=== PATIENT | female | born 1940 | race Caucasian/White ===

== ENCOUNTER 2017-09-26 10:20 | Emergency (ER) | payer MEDICARE ==
[~2017-09-26] VITALS: Ht 165.1 cm; Wt 67.4 kg
[~2017-09-26 10:20] MED LIST: ASPI-1265 PO; BIMA2.5D EACHEYE; BRIM15DR8 OP; CLON-527 PO; ESCI5TAB12 PO; FLUO-81 PO; LOSA50TA3 PO; METF500T PO; OXYB5TAB11 PO; OXYC-150 PO; THY60T PO
[2017-09-26 11:32] LABS: BASOPHILS # (AUTO) 0.1 X10'3 (0-0.2); BASOPHILS % (AUTO) 0.7 % (0-1); EOSINOPHILS # (AUTO) 0.4 X10'3 (0-0.9); EOSINOPHILS % (AUTO) 3.3 % (0-6); HEMATOCRIT 41.3 % (35.0-45.0); HEMOGLOBIN 13.9 g/dl (12.0-16.0); LYMPHOCYTES # (AUTO) 1.4 X10'3 (1.1-4.8); MEAN CORPUSCULAR HEMOGLOBIN 31.2 PG (27.0-31.0); MEAN CORPUSCULAR HGB CONC 33.8 % (33.0-36.5); MEAN CORPUSCULAR VOLUME 92.3 FL (78-98); MEAN PLATELET VOLUME 7.4 FL (7.4-10.4); MONOCYTES # (AUTO) 0.7 X10'3 (0-0.9); MONOCYTES % (AUTO) 6.3 % (2-12); NEUTROPHILS # (AUTO) 8.8 X10'3 (1.8-7.7); NEUTROPHILS % (AUTO) 77.7 % (42-75); PLATELET COUNT 311 X10'3 (140-440); RED BLOOD COUNT 4.48 X10'6 (4.20-5.60); RED CELL DISTRIBUTION WIDTH 14.6 % (11.5-14.5); WHITE BLOOD COUNT 11.3 X10'3 (4.5-11.0)
[2017-09-26 11:43] LABS: PARTIAL THROMBOPLASTIN TIME 25 SECONDS (22-32)
[2017-09-26 11:47] LABS: ALANINE AMINOTRANSFERASE 23 U/L (12-78); ALBUMIN/GLOBULIN RATIO 0.8 (1.1-1.5); ALKALINE PHOSPHATASE 52 IU/L (46-116); ANION GAP 5 (8-16); ASPARTATE AMINO TRANSFERASE 16 U/L (10-37); BILIRUBIN,TOTAL 0.4 MG/DL (0.1-1.0); BLOOD UREA NITROGEN 15 MG/DL (7-18); CALCIUM 8.4 MG/DL (8.5-10.1); CHLORIDE 99 MMOL/L (99-107); CREATININE 0.75 MG/DL (0.40-0.90); GLUCOSE 198 MG/DL (70-104); POTASSIUM 4.4 MMOL/L (3.5-5.1); SODIUM 133 MMOL/L (135-145); TOTAL CARBON DIOXIDE 28.8 MMOL/L (24-32); TOTAL PROTEIN 6.8 G/DL (6.4-8.2); eGFR 75 ML/MIN
[2017-09-26] MEDS ORDERED: pseudoephedrine 30mg tablet PO ONE (12:20)
[2017-09-26] MEDS ORDERED: benzonatate 100mg capsule PO ONE (12:20)
[2017-09-26] MEDS ORDERED: BENZ-16 PO (12:21)
[2017-09-26 12:27] VITALS: BP 120/55
== END 2017-09-27 08:08 | disposition home or self-care (01) ==
LOC: ER 10:20
DX: J06.9 Acute upper respiratory infection, unspecified (principal); G89.29 Other chronic pain; I25.10 Atherosclerotic heart disease of native coronary artery without angina pectoris; E11.9 Type 2 diabetes mellitus without complications; Z95.1 Presence of aortocoronary bypass graft; Z98.890 Other specified postprocedural states; Z79.82 Long term (current) use of aspirin; Z79.84 Long term (current) use of oral hypoglycemic drugs; Z79.899 Other long term (current) drug therapy; Z88.0 Allergy status to penicillin; Z88.8 Allergy status to other drugs, medicaments and biological substances
CPT/HCPCS: 36415; 71045; 80053; 84484; 85025; 85610; 85730; 93005; 99285

== ENCOUNTER 2021-10-23 14:49 | Outpatient (CLI) | payer MEDICARE ==
[~2021-10-23 14:49] MED LIST changes: +ALBU90AE PO; -ASPI-1265 PO; +ATRNS IH; -BIMA2.5D EACHEYE; -BRIM15DR8 OP; +BRIN8DRO EACHEYE; +BUDE10.2 PO; +DICY10CA88 PO; -ESCI5TAB12 PO; +ESTR1TAB28 PO; +LANTUS SQ; +LEVO75TA7 PO; -LOSA50TA3 PO; -METF500T PO; +METH2.5T55 PO; +MIRA50TA PO; +MODA200T48 PO; -OXYB5TAB11 PO; -OXYC-150 PO; +PRED20TA PO; +REPA2TAB12 PO; -THY60T PO
== END 2021-10-23 23:59 | disposition home or self-care (01) ==
LOC: RAD 14:49
PROVIDERS: ATTEND Internal Medicine
DX: R13.14 Dysphagia, pharyngoesophageal phase (principal); K21.9 Gastro-esophageal reflux disease without esophagitis; Z79.899 Other long term (current) drug therapy
CPT/HCPCS: 74230

== ENCOUNTER 2022-05-11 20:41 | Inpatient (IN) | payer MEDICARE ==
[~2022-05-11] VITALS: Ht 165.1 cm; Wt 65.5 kg
[~2022-05-11 20:41] MED LIST changes: -ATRNS IH; +BIMA2.5D EACHEYE; -BRIN8DRO EACHEYE; +BRIN8DRO LEFTEYE; +BUSP15TA3 PO; +CHOL500050 PO; -CLON-527 PO; +CYAN-51 PO; +DEXT30DR6 EACHEYE; +FAMO40TA7 PO; -FLUO-81 PO; +FOLI1TAB27 PO; +INSU100I25 SQ; +INSU100I8; -LANTUS SQ; -LEVO75TA7 PO; -METH2.5T55 PO; +MODA100T31 PO; -MODA200T48 PO; +PRED1TAB PO; -PRED20TA PO; -REPA2TAB12 PO
[2022-05-11 21:42] LABS: BASOPHILS # (AUTO) 0.1 X10'3 (0-0.2); BASOPHILS % (AUTO) 1.1 % (0-1); EOSINOPHILS # (AUTO) 0.1 X10'3 (0-0.9); EOSINOPHILS % (AUTO) 0.6 % (0-6); HEMATOCRIT 37.5 % (35.0-45.0); HEMOGLOBIN 12.3 g/dl (12.0-16.0); LYMPHOCYTES # (AUTO) 1.9 X10'3 (1.1-4.8); LYMPHOCYTES % (AUTO) 21.6 % (21-51); MEAN CORPUSCULAR HEMOGLOBIN 28.7 PG (27.0-31.0); MEAN CORPUSCULAR HGB CONC 32.7 g/dL (33.0-36.5); MEAN CORPUSCULAR VOLUME 87.7 FL (78-98); MEAN PLATELET VOLUME 7.8 FL (7.4-10.4); MONOCYTES # (AUTO) 0.6 X10'3 (0-0.9); MONOCYTES % (AUTO) 7.3 % (2-12); NEUTROPHILS # (AUTO) 6.1 X10'3 (1.8-7.7); NEUTROPHILS % (AUTO) 69.4 % (42-75); PLATELET COUNT 459 X10'3 (140-440); RED BLOOD COUNT 4.28 X10'6 (4.20-5.60); RED CELL DISTRIBUTION WIDTH 15.2 % (11.5-14.5); WHITE BLOOD COUNT 8.7 X10'3 (4.5-11.0)
[2022-05-11 21:53] LABS: ALANINE AMINOTRANSFERASE 59 U/L (12-78); ALBUMIN/GLOBULIN RATIO 0.8 (1.1-1.5); ALKALINE PHOSPHATASE 201 IU/L (46-116); ANION GAP 12 (8-16); ASPARTATE AMINO TRANSFERASE 40 U/L (10-37); BILIRUBIN,TOTAL 0.5 MG/DL (0.1-1.0); BLOOD UREA NITROGEN 36 MG/DL (7-18); BUN/CREATININE RATIO 35.6 (6.6-38.0); CALCIUM 8.6 MG/DL (8.5-10.1); CHLORIDE 102 MMOL/L (99-107); CREATININE 1.01 MG/DL (0.40-0.90); GLUCOSE 89 MG/DL (70-104); POTASSIUM 4.4 MMOL/L (3.5-5.1); SODIUM 137 MMOL/L (135-145); TOTAL CARBON DIOXIDE 22.8 MMOL/L (24-32); TOTAL PROTEIN 6.8 G/DL (6.4-8.2); eGFR 52 ML/MIN
[2022-05-11 22:00] LABS: MAGNESIUM 1.9 MG/DL (1.5-2.4)
--- NOTE | 2022-05-11 22:04 | NUR ---
TROP 640
[2022-05-11] MEDS ORDERED: aspirin 325mg tablet PO ONE (22:20)
[2022-05-11] MEDS ORDERED: furosemide 10 MG/1 ML 10ml inj IV ONE (22:20)
[2022-05-11] MEDS ORDERED: enoxaparin 100mg/ml syringe SUBCUT ONE (22:40)
[2022-05-11] MEDS ORDERED: normal saline 1000ML IV soln IVB ONE (22:50)
[2022-05-12] MEDS ORDERED: normal saline 1000ML IV soln IVB ONE (00:35)
[2022-05-12] MEDS ORDERED: mag hydrox/Alum hydrox/simeth 30ml oral suspension PO PRN (03:00)
[2022-05-12] MEDS ORDERED: morphine 2 MG/ML inj. syringe IV PRN (03:00)
[2022-05-12] MEDS ORDERED: magnesium hydroxide 30ml (MOM) UD suspension PO PRN (03:00)
[2022-05-12] MEDS ORDERED: acetaminophen 325mg tablet PO PRN ×2 (03:00)
[2022-05-12 05:00] VITALS: BP 100/52
[2022-05-12 06:00] VITALS: BP 108/53
--- NOTE | 2022-05-12 06:47 | NUR ---
Patient in room PCU 3025. I have received report from YURI Raphael and had the opportunity to ask questions and assume patient care.
--- NOTE | 2022-05-12 06:59 | NUR ---
Problems reprioritized. Patient report given, questions answered & plan of care reviewed with Tatyana. Addendum: 05/12/22 at 0659 by Daljit Hutton RN Amended: Links added.
[2022-05-12] MEDS ORDERED: dicyclomine 10 MG capsule PO PRN (07:20)
[2022-05-12] MEDS ORDERED: MESSAGE TO PHARMACY PO ONE (07:25)
[2022-05-12] MEDS ORDERED: DEXTROSE 15 GM of carb/4 tabs (each vial/BOTTLE has 4 tablets) PO PRN ×2 (07:25)
[2022-05-12] MEDS ORDERED: glucagon, human recombinant 1mg kit SUBCUT PRN (07:25)
[2022-05-12] MEDS ORDERED: dextrose 50%-water 50ml dispensing syringe IV PRN ×2 (07:25)
[2022-05-12] MEDS ORDERED: albuterol 2.5 MG/3 ML nebule NEB PRN (07:45)
[2022-05-12] MEDS ORDERED: PEG 400/HYPROMELLOSE/GLYCERIN 15ml bottle EACHEYE PRN (07:45)
[2022-05-12] MEDS: estradiol 1mg tablet PO SCH (08:00)
[2022-05-12] MEDS ORDERED: epiNEPHrine 0.1mg/ml 10ml syringe ONE (08:00)
[2022-05-12] MEDS ORDERED: famotidine 20mg tablet PO ONE (08:00)
[2022-05-12] MEDS: modafinil 100mg tablet PO SCH (08:00)
[2022-05-12] MEDS: cholecalciferol (vitamin D3) 1,000 unit (25mcg) tablet PO SCH (08:00)
[2022-05-12] MEDS: aspirin 81mg, enteric-coated 1 TAB TABLET.DR PO SCH (08:00)
[2022-05-12] MEDS ORDERED: amiodarone 50MG/ML inj IV ONE (08:00)
[2022-05-12] MEDS: busPIRone 15mg tablet PO SCH ×2 (08:00→19:55)
[2022-05-12] MEDS ORDERED: atorvastatin 20mg tablet PO SCH (08:00)
[2022-05-12] MEDS: docusate sod 100mg capsule PO SCH ×2 (08:00→19:55)
[2022-05-12] MEDS ORDERED: MIRABEGRON 50 MG PO SCH (08:00)
[2022-05-12] MEDS: folic acid 1mg tablet PO SCH (08:00)
[2022-05-12] MEDS ORDERED: non-formulary drug (Budesonide/Formoterol Fumarate (Symbicort 160-4.5 Mcg Inhaler) 2 PUFF) PO SCH (08:00)
[2022-05-12] MEDS: SIMBRINZA LEFTEYE SCH ×2 (08:00→19:52)
[2022-05-12] MEDS: predniSONE 1 mg tablet PO SCH (08:00)
[2022-05-12] MEDS: albuterol 2.5 MG/3 ML nebule NEB SCH ×3 (08:33→22:08)
[2022-05-12] MEDS: budesonide 0.5mg/2ml UD nebule IH SCH ×2 (08:33→22:08)
[2022-05-12] MEDS: furosemide 20 MG/2 ML vial IV SCH ×2 (08:55→19:55)
[2022-05-12] MEDS: ondansetron/PF 4mg/2ml inj IV PRN (08:57)
--- NOTE | 2022-05-12 09:20 | NUR ---
Pt refusing am meds and breakfast d/t nausea and difficulty swallowing. throat slightly red from excessive cough. Reports increased SOB and pain to right upper back with deep breath. Held meds, gave Maryam and paged with pt update.
[2022-05-12 11:00] VITALS: BP 97/61
[2022-05-12 15:00] VITALS: BP 96/55
--- NOTE | 2022-05-12 18:06 | NUR ---
Problems reprioritized. Patient report given, questions answered & plan of care reviewed with YURI Raphael.
[2022-05-12 19:00] VITALS: BP 111/64
[2022-05-12] MEDS: morphine 2 MG/ML inj. syringe IV PRN (19:19)
[2022-05-12] MEDS: insulin glargine (Lantus) pen - multi-dose SQ SCH (21:00)
[2022-05-12] MEDS ORDERED: HALLS - SOOTHE MENTHOL 1.8 MG cough drop LOZENGE MM PRN (21:30)
[2022-05-12 22:00] VITALS: BP 108/74
[2022-05-12] MEDS ORDERED: LORazepam 1 MG tablet PO ONE (22:15)
[2022-05-13 02:00] VITALS: BP 115/74
[2022-05-13] MEDS: albuterol 2.5 MG/3 ML nebule NEB SCH ×4 (03:00→21:07)
[2022-05-13 06:00] VITALS: BP 153/75
--- NOTE | 2022-05-13 06:02 | NUR ---
0540) WARMED HOT PACK FOR PATIENTS BACK PAIN AND APPLIED IT.
--- NOTE | 2022-05-13 06:53 | NUR ---
Problems reprioritized. Patient report given, questions answered & plan of care reviewed with JEANNE. Addendum: 05/13/22 at 0653 by Daljit Hutton RN Amended: Links added.
[2022-05-13] MEDS: levoTHYROXINE 25mcg tablet PO SCH (07:00)
--- NOTE | 2022-05-13 07:21 | NUR ---
Patient in room U 3026T. I have received report from Donavon and had the opportunity to ask questions and assume patient care.
[2022-05-13] MEDS: morphine 2 MG/ML inj. syringe IV PRN ×3 (07:24→17:06)
[2022-05-13 07:31] LABS: BASOPHILS # (AUTO) 0.1 X10'3 (0-0.2); BASOPHILS % (AUTO) 1.1 % (0-1); EOSINOPHILS # (AUTO) 0.1 X10'3 (0-0.9); EOSINOPHILS % (AUTO) 0.9 % (0-6); HEMATOCRIT 35.6 % (35.0-45.0); HEMOGLOBIN 11.8 g/dl (12.0-16.0); LYMPHOCYTES # (AUTO) 1.3 X10'3 (1.1-4.8); LYMPHOCYTES % (AUTO) 14.9 % (21-51); MEAN CORPUSCULAR HEMOGLOBIN 29.2 PG (27.0-31.0); MEAN CORPUSCULAR HGB CONC 33.1 g/dL (33.0-36.5); MEAN CORPUSCULAR VOLUME 88.4 FL (78-98); MEAN PLATELET VOLUME 7.8 FL (7.4-10.4); MONOCYTES # (AUTO) 0.7 X10'3 (0-0.9); MONOCYTES % (AUTO) 7.8 % (2-12); NEUTROPHILS # (AUTO) 6.5 X10'3 (1.8-7.7); NEUTROPHILS % (AUTO) 75.3 % (42-75); PLATELET COUNT 380 X10'3 (140-440); RED BLOOD COUNT 4.03 X10'6 (4.20-5.60); RED CELL DISTRIBUTION WIDTH 15.6 % (11.5-14.5); WHITE BLOOD COUNT 8.7 X10'3 (4.5-11.0)
[2022-05-13 07:50] LABS: ALBUMIN 2.8 G/DL (3.4-5.0); ANION GAP 19 (8-16); BLOOD UREA NITROGEN 38 MG/DL (7-18); BUN/CREATININE RATIO 38.8 (6.6-38.0); CALCIUM 8.3 MG/DL (8.5-10.1); CHLORIDE 102 MMOL/L (99-107); CREATININE 0.98 MG/DL (0.40-0.90); GLUCOSE 157 MG/DL (70-104); POTASSIUM 4.5 MMOL/L (3.5-5.1); SODIUM 141 MMOL/L (135-145); TOTAL CARBON DIOXIDE 20.4 MMOL/L (24-32); eGFR 54 ML/MIN
[2022-05-13] MEDS: cyanocobalamin 500mcg tablet PO SCH (08:00)
[2022-05-13] MEDS: cholecalciferol (vitamin D3) 1,000 unit (25mcg) tablet PO SCH (08:00)
[2022-05-13] MEDS: modafinil 100mg tablet PO SCH (08:00)
[2022-05-13] MEDS: atorvastatin 20mg tablet PO SCH (08:00)
[2022-05-13] MEDS: SIMBRINZA LEFTEYE SCH ×2 (08:00→20:00)
[2022-05-13] MEDS: latanoprost 0.005% 2.5ml ophthalmic drops EACHEYE SCH (08:00)
[2022-05-13] MEDS: mirabegron 25mg ER tablet PO SCH (08:00)
[2022-05-13] MEDS: aspirin 81mg, enteric-coated 1 TAB TABLET.DR PO SCH (08:00)
[2022-05-13] MEDS: busPIRone 15mg tablet PO SCH ×2 (08:00→20:00)
[2022-05-13] MEDS: predniSONE 1 mg tablet PO SCH (08:00)
[2022-05-13] MEDS: docusate sod 100mg capsule PO SCH ×2 (08:00→20:00)
[2022-05-13] MEDS: folic acid 1mg tablet PO SCH (08:00)
[2022-05-13] MEDS: estradiol 1mg tablet PO SCH (08:00)
[2022-05-13] MEDS: budesonide 0.5mg/2ml UD nebule IH SCH ×2 (08:02→21:07)
--- NOTE | 2022-05-13 09:00 | NUR ---
Per MD Escobar ron to miss dose all PO am meds d/t change in condition. Will continue to monitor.
[2022-05-13] MEDS: furosemide 20 MG/2 ML vial IV SCH ×2 (09:07→19:50)
[2022-05-13 09:20] LABS: ABG BASE EXCESS -4.3 mmol/L (-2.0-2.0); ABG HCO3 20.3 mmol/L (22.0-26.0); ABG OXYGEN SATURATION 90.9 % (94-97); ABG PCO2 (T) 35.3 mmHg (32.0-45.0); ABG PO2 (T) 65.8 mmHg (75.0-100.0); ALLEN'S TEST POSITIVE; FCOHb 0.2 % (0.0-3.9); FLOW 2 L/min; FMetHb 0.1 % (0.0-1.5); FO2Hb 90.6 % (94-97); PATIENT TEMPERATURE 36.6; TOTAL HEMOGLOBIN 12.9 G/dl (12.0-16.0)
--- NOTE | 2022-05-13 10:12 | NUR ---
PAGER ID: [phone] MESSAGE: [id number]. Pasc[place]. Pt refuses bipap. c/o not being able to swallow. on 3L NC, no s/s of distress at this time. Jes [phone]
[2022-05-13 11:00] VITALS: BP_SYST 108; BP_SYST 126; BP_SYST 134; BP_SYST 145; BP_DIAS 37; BP_DIAS 47; BP_DIAS 82
--- NOTE | 2022-05-13 11:00 | NUR ---
Attempted CPAP again - pt tolerated well. Will keep on for as long as tolerated. Monitoring
[2022-05-13 15:00] VITALS: BP 146/69
[2022-05-13 18:00] VITALS: BP 94/69
--- NOTE | 2022-05-13 18:05 | NUR ---
Pt c/o dizzyness. VSS. repositioned and put back the CPAP. She feels better, monitoring
--- NOTE | 2022-05-13 19:04 | NUR ---
Patient in room U 3025P. I have received report from Jes WELCH and had the opportunity to ask questions and assume patient care.
--- NOTE | 2022-05-13 19:04 | NUR ---
Problems reprioritized. Patient report given, questions answered & plan of care reviewed with YURI Abraham.
--- NOTE | 2022-05-13 19:07 | NUR ---
1700 BG was just now done. Pt is not eating. Orthostatic VS was not able to be got today as pt was feeling bad. Cpap was placed on patient about midday and she has been tolerating well since. She is too weak to get out of bed at this time and has been repositioned q2h and PRN. Morphine has been administered for pain with some relief.
--- NOTE | 2022-05-13 19:14 | NUR ---
Orientee documentation: I have reviewed and agree with all interventions, assessments performed and documented by YURI Osuna.
[2022-05-13] MEDS: insulin Lispro (HumaLOG) vial - multi-dose SQ SCH (19:48)
[2022-05-13] MEDS: insulin glargine (Lantus) pen - multi-dose SQ SCH (21:00)
[2022-05-13 22:00] VITALS: BP 117/63
[2022-05-14] VITALS (7 sets, daily range): BP systolic 97–128; BP diastolic 55–73
[2022-05-14] MEDS: morphine 2 MG/ML inj. syringe IV PRN ×3 (01:24→16:41)
[2022-05-14] MEDS: albuterol 2.5 MG/3 ML nebule NEB SCH ×2 (02:47→08:13)
[2022-05-14] MEDS: ondansetron/PF 4mg/2ml inj IV PRN (04:20)
--- NOTE | 2022-05-14 06:30 | NUR ---
Patient in room PCU 3025. I have received report from YURI Loja and had the opportunity to ask questions and assume patient care.
[2022-05-14 06:37] LABS: BASOPHILS # (AUTO) 0.1 X10'3 (0-0.2); BASOPHILS % (AUTO) 0.6 % (0-1); EOSINOPHILS # (AUTO) 0.1 X10'3 (0-0.9); EOSINOPHILS % (AUTO) 0.5 % (0-6); HEMATOCRIT 37.3 % (35.0-45.0); HEMOGLOBIN 12.3 g/dl (12.0-16.0); LYMPHOCYTES # (AUTO) 0.9 X10'3 (1.1-4.8); LYMPHOCYTES % (AUTO) 8.3 % (21-51); MEAN CORPUSCULAR HEMOGLOBIN 29.2 PG (27.0-31.0); MEAN CORPUSCULAR VOLUME 88.3 FL (78-98); MEAN PLATELET VOLUME 7.6 FL (7.4-10.4); MONOCYTES # (AUTO) 0.9 X10'3 (0-0.9); MONOCYTES % (AUTO) 8.3 % (2-12); NEUTROPHILS # (AUTO) 8.5 X10'3 (1.8-7.7); NEUTROPHILS % (AUTO) 82.3 % (42-75); PLATELET COUNT 329 X10'3 (140-440); RED BLOOD COUNT 4.23 X10'6 (4.20-5.60); RED CELL DISTRIBUTION WIDTH 15.4 % (11.5-14.5); WHITE BLOOD COUNT 10.3 X10'3 (4.5-11.0)
--- NOTE | 2022-05-14 06:40 | NUR ---
Problems reprioritized. Patient report given, questions answered & plan of care reviewed with Dot WELCH.
[2022-05-14 06:44] LABS: ALBUMIN 2.9 G/DL (3.4-5.0); ANION GAP 13 (8-16); BLOOD UREA NITROGEN 40 MG/DL (7-18); CALCIUM 8.4 MG/DL (8.5-10.1); CHLORIDE 103 MMOL/L (99-107); GLUCOSE 164 MG/DL (70-104); POTASSIUM 4.4 MMOL/L (3.5-5.1); SODIUM 142 MMOL/L (135-145); TOTAL CARBON DIOXIDE 25.7 MMOL/L (24-32); eGFR 53 ML/MIN
[2022-05-14] MEDS: levoTHYROXINE 25mcg tablet PO SCH (07:00)
--- NOTE | 2022-05-14 07:38 | NUR ---
Message: Dot RN, U [id number], Pasc[place], [id number], ST rec NPO, diff swallow, please order npo, thank you
[2022-05-14] MEDS: modafinil 100mg tablet PO SCH (08:00)
[2022-05-14] MEDS: mirabegron 25mg ER tablet PO SCH (08:00)
[2022-05-14] MEDS: SIMBRINZA LEFTEYE SCH (08:00)
[2022-05-14] MEDS: folic acid 1mg tablet PO SCH (08:00)
[2022-05-14] MEDS: docusate sod 100mg capsule PO SCH ×3 (08:00→21:40)
[2022-05-14] MEDS: atorvastatin 20mg tablet PO SCH (08:00)
[2022-05-14] MEDS: cyanocobalamin 500mcg tablet PO SCH (08:00)
[2022-05-14] MEDS: busPIRone 15mg tablet PO SCH ×3 (08:00→21:43)
[2022-05-14] MEDS: predniSONE 1 mg tablet PO SCH (08:00)
[2022-05-14] MEDS: estradiol 1mg tablet PO SCH (08:00)
[2022-05-14] MEDS: cholecalciferol (vitamin D3) 1,000 unit (25mcg) tablet PO SCH (08:00)
[2022-05-14] MEDS: aspirin 81mg, enteric-coated 1 TAB TABLET.DR PO SCH (08:00)
[2022-05-14] MEDS: budesonide 0.5mg/2ml UD nebule IH SCH (08:13)
[2022-05-14] MEDS: furosemide 20 MG/2 ML vial IV SCH ×2 (09:03→21:42)
--- NOTE | 2022-05-14 09:10 | NUR ---
Message: YURI Chris, [id number], [id number], [place], daughter at bedside, would like update. unable to swallow meds. ST recs NPO, Glucose 169, do you want Humalog give? TY Addendum: 05/14/22 at 1207 by Dot Geronimo RN Pt placed on strict NPO, aspiration precautions, Lasix orders placed, Ativan ordered for anxiety. Dr Kirk to call daughter, ROBBIN, on phone, will continue to monitor blood glucose.
[2022-05-14] MEDS: latanoprost 0.005% 2.5ml ophthalmic drops EACHEYE SCH (10:15)
[2022-05-14] MEDS ORDERED: LORazepam 2 mg/ml vial IV PRN (11:00)
[2022-05-14] MEDS ORDERED: furosemide 40mg/4ml inj IV ONE (11:00)
--- NOTE | 2022-05-14 11:55 | NUR ---
unable to obtain orthostatic VS, pt too weak, feels dizzy, unable to stand, Dr Kirk aware.
[2022-05-14] MEDS ORDERED: albuterol 2.5 MG/3 ML nebule NEB SCH ×2 (12:00→15:00)
[2022-05-14] MEDS ORDERED: methylPREDNISolone sod succ 125mg/2ml vial IV ONE (13:10)
[2022-05-14] MEDS ORDERED: ipratropium/albuterol 3ml nebule NEB PRN (13:10)
[2022-05-14] MEDS ORDERED: iohexol 350MG/ML 100ml bottle IV ONE (13:15)
[2022-05-14] MEDS: methylPREDNISolone sod succ 125mg/2ml vial IV SCH ×2 (14:00→21:39)
--- NOTE | 2022-05-14 15:34 | NUR ---
Unable to place 20 g IV in AC, necessary for CT PE rule out. 6 attempts by floor nurses, House Sup and PICC RN group notified.
[2022-05-14] MEDS: ipratropium/albuterol 3ml nebule NEB SCH ×3 (16:18→23:19)
[2022-05-14] MEDS: pantoprazole 40MG/NS 100ML BAG 100 ML IV SCH ×2 (16:29→20:00)
--- NOTE | 2022-05-14 18:05 | NUR ---
Message: Zuleima Mcclain [id number] Re : [place] [id number] pharmacy out of IV Ativan, Can we changed patients PRN Ativan to Diazepam
[2022-05-14] MEDS: insulin Lispro (HumaLOG) vial - multi-dose SQ SCH (19:46)
[2022-05-14] MEDS: insulin glargine (Lantus) pen - multi-dose SQ SCH (21:00)
[2022-05-14] MEDS: heparin, porcine 5000 units/ml vial SQ SCH (21:40)
[2022-05-15] VITALS (10 sets, daily range): BP systolic 98–113; BP diastolic 45–77
[2022-05-15] MEDS: methylPREDNISolone sod succ 125mg/2ml vial IV SCH ×4 (02:18→21:23)
--- NOTE | 2022-05-15 02:25 | NUR ---
Patient is unable to swallow 05/14/20221999 PM Meds.
[2022-05-15] MEDS: ipratropium/albuterol 3ml nebule NEB SCH ×6 (03:00→23:00)
[2022-05-15 06:21] LABS: BASOPHILS % (AUTO) 0.1 % (0-1); EOSINOPHILS % (AUTO) 0 % (0-6); HEMATOCRIT 37.2 % (35.0-45.0); HEMOGLOBIN 12.2 g/dl (12.0-16.0); LYMPHOCYTES # (AUTO) 0.5 X10'3 (1.1-4.8); LYMPHOCYTES % (AUTO) 5.4 % (21-51); MEAN CORPUSCULAR HGB CONC 32.9 g/dL (33.0-36.5); MEAN CORPUSCULAR VOLUME 88.2 FL (78-98); MEAN PLATELET VOLUME 7.7 FL (7.4-10.4); MONOCYTES # (AUTO) 0.2 X10'3 (0-0.9); MONOCYTES % (AUTO) 2.5 % (2-12); PLATELET COUNT 301 X10'3 (140-440); RED BLOOD COUNT 4.21 X10'6 (4.20-5.60); RED CELL DISTRIBUTION WIDTH 15.7 % (11.5-14.5); WHITE BLOOD COUNT 9.8 X10'3 (4.5-11.0)
--- NOTE | 2022-05-15 06:35 | NUR ---
Patient in room PCU 3025. I have received report from YURI Mcclelland and had the opportunity to ask questions and assume patient care.
[2022-05-15 06:38] LABS: ALBUMIN 2.8 G/DL (3.4-5.0); ANION GAP 19 (8-16); BLOOD UREA NITROGEN 44 MG/DL (7-18); BUN/CREATININE RATIO 37.9 (6.6-38.0); CALCIUM 8.8 MG/DL (8.5-10.1); CHLORIDE 103 MMOL/L (99-107); CREATININE 1.16 MG/DL (0.40-0.90); GLUCOSE 276 MG/DL (70-104); POTASSIUM 4.2 MMOL/L (3.5-5.1); SODIUM 146 MMOL/L (135-145); TOTAL CARBON DIOXIDE 24.4 MMOL/L (24-32); eGFR 45 ML/MIN
[2022-05-15] MEDS: levoTHYROXINE 25mcg tablet PO SCH (06:54)
[2022-05-15] MEDS: folic acid 1mg tablet PO SCH (06:55)
[2022-05-15] MEDS: busPIRone 15mg tablet PO SCH ×2 (06:55→20:00)
[2022-05-15] MEDS: atorvastatin 20mg tablet PO SCH (06:55)
[2022-05-15] MEDS: aspirin 81mg, enteric-coated 1 TAB TABLET.DR PO SCH (06:55)
[2022-05-15] MEDS: cyanocobalamin 500mcg tablet PO SCH (06:56)
[2022-05-15] MEDS: mirabegron 25mg ER tablet PO SCH (06:56)
[2022-05-15] MEDS: cholecalciferol (vitamin D3) 1,000 unit (25mcg) tablet PO SCH (06:56)
[2022-05-15] MEDS: modafinil 100mg tablet PO SCH (06:56)
[2022-05-15] MEDS: heparin, porcine 5000 units/ml vial SQ SCH ×2 (06:57→21:24)
[2022-05-15] MEDS: insulin Lispro (HumaLOG) vial - multi-dose SQ SCH ×2 (07:47→17:55)
[2022-05-15] MEDS: pantoprazole 40MG/NS 100ML BAG 100 ML IV SCH (07:50)
[2022-05-15] MEDS: furosemide 20 MG/2 ML vial IV SCH ×2 (07:50→21:25)
[2022-05-15] MEDS: morphine 2 MG/ML inj. syringe IV PRN ×2 (07:50→15:00)
[2022-05-15] MEDS: SIMBRINZA LEFTEYE SCH (08:00)
[2022-05-15] MEDS: estradiol 1mg tablet PO SCH (08:00)
--- NOTE | 2022-05-15 09:24 | NUR ---
spoke with daughter, ROBBIN, updated on pt conditions and tests, procedures.
[2022-05-15] MEDS: ondansetron/PF 4mg/2ml inj IV PRN (09:30)
[2022-05-15] MEDS: latanoprost 0.005% 2.5ml ophthalmic drops EACHEYE SCH (09:31)
[2022-05-15] MEDS ORDERED: magnesium hydroxide 30ml (MOM) UD suspension PO ONE (09:40)
--- NOTE | 2022-05-15 10:29 | NUR ---
Message to Dot Kang, RN, [id number], Pt [id number], [facility], Hospital is out of Ativan, Please change order to diazepam. TY
[2022-05-15] MEDS ORDERED: fentaNYL/PF 50MCG/1 ML 2ML syringe ONE (10:47)
[2022-05-15] MEDS ORDERED: MIDAZolam 1 MG/ML 5ML VIAL ONE (10:47)
[2022-05-15] MEDS ORDERED: LIDOcaine Viscous 15ml cup ONE (10:47)
--- NOTE | 2022-05-15 17:43 | NUR ---
spoke with daughter, ROBBIN, updated on pt during this shift, all questions answered.
[2022-05-15] MEDS: diazepam inj 5 MG/ML inj. IV PRN ×2 (17:57→23:43)
[2022-05-15] MEDS ORDERED: simethicone 40mg/0.6ml oral drops 30ml PO ONE (18:05)
[2022-05-15] MEDS ORDERED: LIDOcaine Viscous 15ml cup MM ONE (18:10)
[2022-05-15] MEDS ORDERED: MIDAZolam 1 MG/ML 5ML VIAL IV ONE (18:10)
[2022-05-15] MEDS ORDERED: normal saline 1000ml 1,000 ML IV SCH (18:15)
[2022-05-15] MEDS ORDERED: fentaNYL/PF 50MCG/1 ML 2ML syringe IV ONE (18:15)
--- NOTE | 2022-05-15 18:30 | NUR ---
Problems reprioritized. Patient report given, questions answered & plan of care reviewed with YURI Mcclelland.
[2022-05-15] MEDS: docusate sod 100mg capsule PO SCH (20:00)
[2022-05-15] MEDS: pantoprazole 40mg Tablet.DR PO SCH (20:00)
[2022-05-15] MEDS: insulin glargine (Lantus) pen - multi-dose SQ SCH (21:54)
[2022-05-16 02:00] VITALS: BP 113/70
[2022-05-16] MEDS: methylPREDNISolone sod succ 125mg/2ml vial IV SCH ×4 (02:29→20:29)
[2022-05-16] MEDS: ipratropium/albuterol 3ml nebule NEB SCH ×6 (02:33→23:06)
[2022-05-16 06:00] VITALS: BP 107/65
[2022-05-16 06:12] LABS: BASOPHILS # (AUTO) 0.2 X10'3 (0-0.2); EOSINOPHILS % (AUTO) 0 % (0-6); HEMATOCRIT 38.4 % (35.0-45.0); HEMOGLOBIN 12.8 g/dl (12.0-16.0); LYMPHOCYTES # (AUTO) 0.5 X10'3 (1.1-4.8); LYMPHOCYTES % (AUTO) 3.7 % (21-51); MEAN CORPUSCULAR HEMOGLOBIN 29.1 PG (27.0-31.0); MEAN CORPUSCULAR HGB CONC 33.4 g/dL (33.0-36.5); MEAN CORPUSCULAR VOLUME 87.2 FL (78-98); MEAN PLATELET VOLUME 7.7 FL (7.4-10.4); MONOCYTES # (AUTO) 0.5 X10'3 (0-0.9); MONOCYTES % (AUTO) 3.2 % (2-12); NEUTROPHILS # (AUTO) 13.4 X10'3 (1.8-7.7); NEUTROPHILS % (AUTO) 92.1 % (42-75); PLATELET COUNT 269 X10'3 (140-440); RED CELL DISTRIBUTION WIDTH 15.7 % (11.5-14.5); WHITE BLOOD COUNT 14.5 X10'3 (4.5-11.0)
[2022-05-16 06:23] LABS: ANION GAP 9 (8-16); BLOOD UREA NITROGEN 59 MG/DL (7-18); BUN/CREATININE RATIO 42.4 (6.6-38.0); CALCIUM 8.6 MG/DL (8.5-10.1); CHLORIDE 107 MMOL/L (99-107); CREATININE 1.39 MG/DL (0.40-0.90); GLUCOSE 226 MG/DL (70-104); POTASSIUM 3.6 MMOL/L (3.5-5.1); SODIUM 149 MMOL/L (135-145); TOTAL CARBON DIOXIDE 33.2 MMOL/L (24-32); eGFR 36 ML/MIN
--- NOTE | 2022-05-16 07:13 | NUR ---
Problems reprioritized. Patient report given, questions answered & plan of care reviewed with AM YURI Andre.
[2022-05-16] MEDS: ondansetron/PF 4mg/2ml inj IV PRN ×3 (07:30→17:23)
[2022-05-16] MEDS: diazepam inj 5 MG/ML inj. IV PRN ×4 (07:32→21:32)
[2022-05-16] MEDS: furosemide 20 MG/2 ML vial IV SCH ×2 (07:33→20:00)
--- NOTE | 2022-05-16 07:55 | NUR ---
Med administration solumedrol, valium, and zofran was administered at 0755 this AM. Administration did not save as computer . Manually administer in emar.
[2022-05-16] MEDS: pantoprazole 40mg Tablet.DR PO SCH ×2 (08:00→20:32)
[2022-05-16] MEDS: aspirin 81mg, enteric-coated 1 TAB TABLET.DR PO SCH (08:00)
[2022-05-16] MEDS: latanoprost 0.005% 2.5ml ophthalmic drops EACHEYE SCH (08:00)
[2022-05-16] MEDS: docusate sod 100mg capsule PO SCH ×2 (08:00→20:32)
[2022-05-16] MEDS: SIMBRINZA LEFTEYE SCH ×2 (08:00→20:33)
--- NOTE | 2022-05-16 08:30 | NUR ---
Pt is refusing humalog administration for BG of 214. She says she does not want since she has not eaten. Education provided, pt verbalized understanding.
--- NOTE | 2022-05-16 09:30 | NUR ---
PT REFUSED INSULIN
[2022-05-16 11:00] VITALS: BP 102/62
[2022-05-16] MEDS: folic acid 1mg tablet PO SCH (11:19)
[2022-05-16] MEDS: cholecalciferol (vitamin D3) 1,000 unit (25mcg) tablet PO SCH (11:20)
[2022-05-16] MEDS: mirabegron 25mg ER tablet PO SCH (11:21)
[2022-05-16] MEDS: estradiol 1mg tablet PO SCH (11:21)
[2022-05-16] MEDS: levoTHYROXINE 25mcg tablet PO SCH (11:21)
[2022-05-16] MEDS: atorvastatin 20mg tablet PO SCH (11:21)
[2022-05-16] MEDS: cyanocobalamin 500mcg tablet PO SCH (11:21)
[2022-05-16] MEDS: busPIRone 15mg tablet PO SCH ×2 (11:22→20:32)
[2022-05-16] MEDS: modafinil 100mg tablet PO SCH (11:22)
[2022-05-16] MEDS: heparin, porcine 5000 units/ml vial SQ SCH ×2 (11:23→20:32)
[2022-05-16] MEDS: insulin Lispro (HumaLOG) vial - multi-dose SQ SCH ×2 (11:38→21:27)
--- NOTE | 2022-05-16 12:01 | NUR ---
Pt was able to eat her AM meds crushed in a little bit of jello along with some juice. She tolerated well just very slow.
--- NOTE | 2022-05-16 12:11 | NUR ---
Quinn Consult: Quinn Goldberg w/ skin intact per EMR. Addendum: 05/16/22 at [address] Amended: Links added.
[2022-05-16] MEDS: morphine 2 MG/ML inj. syringe IV PRN ×2 (12:24→17:48)
[2022-05-16] MEDS ORDERED: CefTRIAXone/D5W-Rocephin 1gm 50 ML IV ONE (12:30)
--- NOTE | 2022-05-16 13:25 | NUR ---
Pt is refusing humalog administration for BG of 210. She says she does not want since she has barely eaten. Education provided, pt verbalized understanding.
--- NOTE | 2022-05-16 14:37 | NUR ---
PRESSURE ULCER EDUCATION: DEFINITION: A pressure ulcer is an area of skin that breaks down when you stay in one position too long. The constant pressure against the skin reduces the blood flow to that area and the affected tissue dies. CAUSES: "Being bedridden or in a wheelchair "Fragile skin "Having a chronic condition, such as diabetes or vascular disease "Inability to move certain parts of your body without assistance "Older age "Incontinence of urine or stool SYMPTOMS: "A reddened area that DOES NOT turn white when pressed on - this can be the beginning of a pressure ulcer "A blister, deep sore or a crater - these can be advanced pressure ulcers FIRST AID: "Relieve the pressure on this area "Keep the area clean and dry "Call your primary doctor if you see any of the above symptoms "DO NOT massage the area "DO NOT use a donut shaped or ring shaped pillow- these actually interfere with the blood flow and cause complications PREVENTION: "Check for pressure ulcers everyday "Change position at least every two hours to relieve pressure "Use items that help relieve pressure- pillows, sheepskin, foam padding, and powders. "Keep skin clean and dry "Eat healthy well balanced meals "Exercise daily IF YOU SEE ANY OF THESE SYMPTOMS WHILE IN THE HOSPITAL - TELL YOUR NURSE IMMEDIATELY. IF YOU SEE ANY OF THESE SYMPTOMS WHILE AT HOME OR HAVE ANY QUESTIONS OR CONCERNS ABOUT PRESSURE ULCERS - CALL YOUR PRIMARY DOCTOR IMMEDIATELY. Addendum: 05/16/22 at 1437 by Dot Lancaster LVN Amended: Links added.
[2022-05-16 15:00] VITALS: BP 105/56
--- NOTE | 2022-05-16 17:21 | NUR ---
Paged Dr Message: [id number]. Pascual. 30-50 sec run of Vtach during straight cath. Now, ST 99-100's. Jes Stewart [phone] Transaction number: [id number]
[2022-05-16 17:28] LABS: CLARITY,URINE CLEAR (Clear); COLOR,URINE YELLOW (Yellow); GLUCOSE, URINE NEGATIVE (Neg); KETONES,URINE NEGATIVE (Neg); LEUKOCYTE ESTERASE ,URINE NEGATIVE (Neg); NITRITES, URINE NEGATIVE (Neg); OCCULT BLOOD,URINE NEGATIVE (Neg); PH,URINE 5.5 (4.8-8.0); PROTEIN,URINE NEGATIVE (Neg); UROBILINOGEN,URINE 0.2 E.U/dL (0.2-1.0)
[2022-05-16 17:33] LABS: UA COLLECTION TYPE STRAIGHT CATH
--- NOTE | 2022-05-16 18:30 | NUR ---
Orientee documentation: I have reviewed and agree with all interventions, assessments performed and documented by YURI Osuna.
[2022-05-16 19:30] LABS: MAGNESIUM 2.4 MG/DL (1.5-2.4); POTASSIUM 3.6 MMOL/L (3.5-5.1)
--- NOTE | 2022-05-16 21:03 | NUR ---
Patient has refused to receive her lasix for tonight. She is aware that her BP is 104/50 and that the parameters are to give, Pt stated she feels too weak and lightheaded and doesn't want to receive it. Pt has taken all other medications for tonight. O2 was 93% on 3L and refusing to use her Cpap.
[2022-05-16] MEDS: insulin glargine (Lantus) pen - multi-dose SQ SCH (21:25)
[2022-05-17] VITALS (11 sets, daily range): BP systolic 0–111; BP diastolic 0–84
[2022-05-17] MEDS: ipratropium/albuterol 3ml nebule NEB SCH ×2 (03:09→07:52)
[2022-05-17] MEDS: methylPREDNISolone sod succ 125mg/2ml vial IV SCH (03:09)
--- NOTE | 2022-05-17 03:15 | NUR ---
Giving pt SM IV, RT in room to give breathing treatment. Pt stated she wanted to be adjusted in bed. Breathing treatment initiated, Tele stated HR in the 170s and increasing, nurse in room to do VS, Breathing treatment stopped pt alert, then became very pale, not responding to sternal rub. RT and nurse unable to locate a pulse and CODE was called as compressions were initiated. Crash cart and CODE TEAM arrived Addendum: 05/17/22 at 0500 by Sidra Mcgregor RN Amended: Links added.
[2022-05-17 03:49] LABS: ABG BASE EXCESS 4.7 mmol/L (-2.0-2.0); ABG HCO3 29.9 mmol/L (22.0-26.0); ABG OXYGEN SATURATION 85.4 % (94-97); ABG PCO2 (T) 45.9 mmHg (32.0-45.0); ABG PO2 (T) 53.1 mmHg (75.0-100.0); ALLEN'S TEST POSITIVE; FCOHb 0.1 % (0.0-3.9); FLOW 6 L/min; FMetHb 0.2 % (0.0-1.5); FO2Hb 85.1 % (94-97); TOTAL HEMOGLOBIN 14.2 G/dl (12.0-16.0)
[2022-05-17] MEDS ORDERED: midazolam 1 mg/ML 2ml injection ONE (03:51)
[2022-05-17] MEDS ORDERED: fentaNYL/PF 50MCG/1 ML 2ML syringe ONE (03:53)
[2022-05-17] MEDS ORDERED: amiodarone/D5 360MG/200ML BAG 200 ML IV SCH ×2 (04:05→09:15)
[2022-05-17 04:14] LABS: BASOPHILS % (AUTO) 0 % (0-1); EOSINOPHILS # (AUTO) 0.1 X10'3 (0-0.9); EOSINOPHILS % (AUTO) 0.4 % (0-6); HEMOGLOBIN 13.6 g/dl (12.0-16.0); LYMPHOCYTES # (AUTO) 0.6 X10'3 (1.1-4.8); LYMPHOCYTES % (AUTO) 3.6 % (21-51); MEAN CORPUSCULAR HEMOGLOBIN 29.3 PG (27.0-31.0); MEAN CORPUSCULAR HGB CONC 33.3 g/dL (33.0-36.5); MEAN PLATELET VOLUME 7.8 FL (7.4-10.4); MONOCYTES # (AUTO) 0.3 X10'3 (0-0.9); NEUTROPHILS # (AUTO) 15.1 X10'3 (1.8-7.7); PLATELET COUNT 234 X10'3 (140-440); RED BLOOD COUNT 4.66 X10'6 (4.20-5.60); RED CELL DISTRIBUTION WIDTH 15.9 % (11.5-14.5)
[2022-05-17 04:40] LABS: ANION GAP 12 (8-16); BLOOD UREA NITROGEN 67 MG/DL (7-18); BUN/CREATININE RATIO 46.5 (6.6-38.0); CALCIUM 8.7 MG/DL (8.5-10.1); CHLORIDE 109 MMOL/L (99-107); CREATININE 1.44 MG/DL (0.40-0.90); GLUCOSE 288 MG/DL (70-104); MAGNESIUM 2.3 MG/DL (1.5-2.4); PHOSPHORUS 4.3 MG/DL (2.3-4.5); POTASSIUM 3.8 MMOL/L (3.5-5.1); SODIUM 152 MMOL/L (135-145); TOTAL CARBON DIOXIDE 30.7 MMOL/L (24-32); eGFR 35 ML/MIN
--- NOTE | 2022-05-17 04:46 | NUR ---
Pt arrived at 0430 from the floor post code. She is on Bipap. She follows command but is difficult to understand given her weakness and the bipap mask. 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 She is on 100% Bipap 14/7 pressure support. ABG done at 0345 was 55 or so, otherwise unremarkable, it appears she is a CO2 retainer with COPD. Her sat is 95% and her RR is 21. She is diminished with crackles in the bases. She has a weak but palpable pulse. SBP 95 MAP 66. HR is mostly sinus but has episodes what appears to be an SVT. Upstairs she apparently went into some tachycardia rhythm and lost consciousness with RT and RN present. She had a short round of CPR to which she woke up appropriately. She then got 2 rounds of adenosine for the Tachyarrythmia that did not convert. SHe was then sedated with etomidate and cardioverted with 1 shock (unsure of joules) and converted to this rhythm now. She got a 150mg loading dose of amiodarone and is on 1mg/min of amiodarone now. She has a 20g PIV in her L AC for access working well. Unsure of her last BM, as is she. She had guzman placed up here with pink urine returning, UA was done yesterday at 1700. Her skin is red on the buttocks for now but blanching. I'm told the Critical Care MD saw her via telemed upstairs but no new orders from her noted yet. Pt only c/o of pain to her chest, likely from CPR, descriped it at sharp with breathing. Addendum: 05/17/22 at 0521 by Tristan Kc RN the floor brought me a rhythm where it appears she was in a Vtach rhythm that was sustained at the time she lost consciousness. No Vtach up here though just runs of SVT and lots of PVCs so far. Will call the MD to see if they want to rebolus with brandt.
[2022-05-17] MEDS ORDERED: POTASSIUM BICARB 20meq eff tab 20 MEQ TABLET.EFF PO SCH (05:40)
--- NOTE | 2022-05-17 05:48 | NUR ---
Notified of Vtach runs starting again, lasting approx 10 sec. MD wanted to give her 20 meq PO potassium, if Vtach runs are 20sec or more we can reload her with 150mg Amiodarone. She was unable to swallow a tablespoon of water so I changed the potassium to IV, awaiting pharmacy to release it.
[2022-05-17] MEDS ORDERED: potassium Cl 10 mEq/100mL bag IV ONE ×2 (05:50→07:00)
--- NOTE | 2022-05-17 05:50 | NUR ---
Spoke to pt's daughter and updated her on the situation. She will come in today to see her and have a discussion with her and the MD about code status.
[2022-05-17 07:44] LABS: ABG BASE EXCESS 5.3 mmol/L (-2.0-2.0); ABG HCO3 30.5 mmol/L (22.0-26.0); ABG OXYGEN SATURATION 98.3 % (94-97); ABG PO2 (T) 119.8 mmHg (75.0-100.0); ALLEN'S TEST POSITIVE; FCOHb 0.3 % (0.0-3.9); FMetHb 0.2 % (0.0-1.5); FO2Hb 97.8 % (94-97); PATIENT TEMPERATURE 35.9; RESPIRATORY RATE 16 b/min; TOTAL HEMOGLOBIN 14.7 G/dl (12.0-16.0)
--- NOTE | 2022-05-17 07:44 | NUR ---
Initial: Pt admitted w/ acute on chronic respiratory failure, COPD exacerbation and dysphagia s/p esophageal dilation per EMR. Currently on Full liquid diet per ACADEMIC SUPPORT DIRECTOR recs though w/ mostly 0% intake through LOS. Pt s/p code blue early this morning per documentation and is now not able to swallow water per RN notes. Pt on BiPAP. Pending family meeting to discuss code status. If within POC, pt could benefit from initiation of nutrition support. Given mostly 0% PO intake since admit and mild edema, pt meets minimum criteria for malnutrition. Noted A1c 7.5 though pt not appropriate for DM ed at this time. LBM 05/12. Will continue to monitor. Recs: 1. Full liquid diet per ACADEMIC SUPPORT DIRECTOR 2. If within POC, initiation of nutrition support 3. Bowel care per rx 4. Scaled wts Addendum: 05/17/22 at [address] Amended: Links added.
[2022-05-17] MEDS ORDERED: CefTRIAXone/D5W-Rocephin 1gm 50 ML IV ONE (08:00)
[2022-05-17] MEDS ORDERED: NORepinephrine 8mg/ 250ml NS 250 ML IV PRN (08:05)
[2022-05-17] MEDS ORDERED: morphine 2 MG/ML inj. syringe IV ONE (08:05)
[2022-05-17] MEDS ORDERED: DOPamine 400mg/D5W 250ml 250 ML IV ONE (08:14)
[2022-05-17] MEDS ORDERED: NORepinephrine 8mg/ 250ml NS 250 ML IV ONE (08:17)
[2022-05-17] MEDS: ondansetron/PF 4mg/2ml inj IV PRN (08:28)
[2022-05-17] MEDS ORDERED: amiodarone 150mg/dext, iso-os 100 ML IV ONE (08:45)
[2022-05-17] MEDS: insulin Lispro (HumaLOG) vial - multi-dose SQ SCH (09:06)
[2022-05-17] MEDS ORDERED: amiodarone 50MG/ML inj IV ONE (09:53)
--- NOTE | 2022-05-17 11:42 | NUR ---
ASSUMED PATIENT CARE THIS A.M. PATIENT ALERT ORIENTED X3, BUT VERY WEAK. PATIENT ON BIPAP 100%. AMIODARONE GTT @1mg/hr. or 33.0 ml/hr patients family at bed side around 0745 an discussed code status with daughter. Initially patient wanted everything done to save her life. However patient and daughter came to an understanding of a limited code "no compression" ppatient also suffered from pneumothorax which a chest tube was placed by MD Fishman. about 1030 am patient then went into svt again and then became unarousable. MD and daughter at bedside, patient checked for pulse after epinephrine and ammiodarone bolus no pulse appreciated by MD. time of 1044 am.
--- NOTE | 2022-05-17 12:00 | NUR ---
Called [facility] and spoked to Marie there. She had apparently called over the phone to donate her body to medical research. However, they have no official consent forms sothey asked I give their number to her daughter and call the regular organ procurment agency untill that time.
--- NOTE | 2022-05-17 12:23 | NUR ---
Called [facility] ROBBIN and let them know what the [employer] said. She took their number down and will call them next. Idania Turner updated on phone calls made that the [facility] still needs to be called.
== END 2022-05-17 17:37 ==
LOC: ER 20:41 → ED HOLD 05-12 03:03 → PCU 3S 05-12 05:10 → ICU 2S 05-17 04:20
PROVIDERS: ADMIT Internal Medicine; ATTEND Internal Medicine
PROC: 5A09357 Assistance with Respiratory Ventilation, Less than 24 Consecutive Hours, Continuous Positive Airway Pressure (ICD-10-PCS; principal; 2022-05-13)
PROC: 5A09357 Assistance with Respiratory Ventilation, Less than 24 Consecutive Hours, Continuous Positive Airway Pressure (ICD-10-PCS; 2022-05-15)
PROC: 5A2204Z Restoration of Cardiac Rhythm, Single (ICD-10-PCS; 2022-05-16)
PROC: 5A09357 Assistance with Respiratory Ventilation, Less than 24 Consecutive Hours, Continuous Positive Airway Pressure (ICD-10-PCS; 2022-05-17)
PROC: 5A12012 Performance of Cardiac Output, Single, Manual (ICD-10-PCS; 2022-05-17)
PROC: 05HY33Z Insertion of Infusion Device into Upper Vein, Percutaneous Approach (ICD-10-PCS; 2022-05-17)
PROC: 0W9930Z Drainage of Right Pleural Cavity with Drainage Device, Percutaneous Approach (ICD-10-PCS; 2022-05-17)
PROC: 0D758ZZ Dilation of Esophagus, Via Natural or Artificial Opening Endoscopic (ICD-10-PCS; 2022-05-17)
DX: I11.0 Hypertensive heart disease with heart failure (principal); G93.41 Metabolic encephalopathy; I21.A1 Myocardial infarction type 2; J96.21 Acute and chronic respiratory failure with hypoxia; I50.23 Acute on chronic systolic (congestive) heart failure; E87.0 Hyperosmolality and hypernatremia; I47.1 Supraventricular tachycardia; J93.9 Pneumothorax, unspecified; K22.2 Esophageal obstruction; Z66 Do not resuscitate; R13.10 Dysphagia, unspecified; E03.9 Hypothyroidism, unspecified; E11.51 Type 2 diabetes mellitus with diabetic peripheral angiopathy without gangrene; E78.5 Hyperlipidemia, unspecified; F41.9 Anxiety disorder, unspecified; G47.33 Obstructive sleep apnea (adult) (pediatric); I25.10 Atherosclerotic heart disease of native coronary artery without angina pectoris; G89.29 Other chronic pain; M19.90 Unspecified osteoarthritis, unspecified site; M54.9 Dorsalgia, unspecified; Z20.822 Contact with and (suspected) exposure to COVID-19; F32.A Depression, unspecified; I34.0 Nonrheumatic mitral (valve) insufficiency; I46.9 Cardiac arrest, cause unspecified; I48.91 Unspecified atrial fibrillation; R62.7 Adult failure to thrive; J43.9 Emphysema, unspecified; Z79.82 Long term (current) use of aspirin; Z79.84 Long term (current) use of oral hypoglycemic drugs; I25.2 Old myocardial infarction; Z79.899 Other long term (current) drug therapy; Z83.3 Family history of diabetes mellitus; Z86.73 Personal history of transient ischemic attack (TIA), and cerebral infarction without residual deficits; Z95.1 Presence of aortocoronary bypass graft; Z88.0 Allergy status to penicillin; Z88.8 Allergy status to other drugs, medicaments and biological substances; Z68.24 Body mass index [BMI] 24.0-24.9, adult; R13.14 Dysphagia, pharyngoesophageal phase
CPT/HCPCS: 36415; 36600; 43248; 71045; 71275; 74230; 80048; 80053; 81003; 82803; 82948; 83036; 83605; 83735; 83880; 84100; 84132; 84145; 84443; 84484; 85018; 85025; 87081; 87635; 87811; 92508; 92616; 92950; 93005; 93308; 93971; 94640; 94660; 94760; 96360; 96372; 97110; 97116; 97530; 99152; 99285; A4338; A4615; A4620; A6449; C1751; C1758; C1769; C9113; C9803; G0378; J0171; J0282; J0696; J1265; J1644; J1650; J1815; J1940; J2060; J2250; J2270; J2405; J2930; J3010; J3360; J3490; J7030; J7040; Q9967